=== PATIENT | male | born 2000 | race Two or more races ===

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

== ENCOUNTER 2020-03-31 00:12 | Emergency (ER) | payer MEDICAID ==
[~2020-03-31] VITALS: Ht 182.9 cm; Wt 102.1 kg
[2020-03-31 00:43] VITALS: BP 121/71
== END 2020-03-31 01:46 | disposition home or self-care (01) ==
LOC: ER 00:14
DX: B34.9 Viral infection, unspecified (principal); J02.9 Acute pharyngitis, unspecified
CPT/HCPCS: 71045